=== PATIENT | male | born 1975 | race Caucasian/White ===

== ENCOUNTER 2025-06-07 12:44 | Emergency (ER) | payer OTHER, SELFPAY ==
[2025-06-07 12:46] VITALS: BP 122/86
[2025-06-07] MEDS: VIBRAMYCIN 100 MG PO (14:16)
--- NOTE | 2025-06-07 15:01 | ED.GENMED ---
History of Present Illness
General
Chief Complaint: Skin Surface Trauma
Time Seen by Provider: 06/07/25 13:00
History of Present Illness
History of Present Illness:
see MDM
Phy Exam
Physical Exam
Physical Exam:
see MDM
Course
Orders/Labs/Results
Orders:
Orders
06/07/25 13:31
CR Knee - Left 4 Or More View* Urgent
Comment:
Reason For Exam: left posterior knee laceration
06/07/25 13:49
Doxycycline [Vibramycin] 100 mg PO NOW STA
Vital Signs
Initial and Last Documented VS:
Initial Vital Signs
Temp Pulse Resp BP Pulse Ox
36.8 C 96 18 122/86 96
06/07/25 12:46 06/07/25 12:46 06/07/25 12:46 06/07/25 12:46 06/07/25 12:46
Last Documented Vital Signs
Temp Pulse Resp BP Pulse Ox
36.8 C 96 18 122/86 96
06/07/25 12:46 06/07/25 12:46 06/07/25 12:46 06/07/25 12:46 06/07/25 12:46
Procedures
Laceration Closure
Left Posterior Knee:
Status of Wound: clean
Description of Wound Edges: surrounded by abrasion and macerated
Preparation: cleaned with saline
Anesthesia: 1% Lidocaine
Revision/Debridement: minor revision and irrigate-direct pressure
Wound exploration: explored to base- no FB and no tendon involvement
Type of Closure: single layer closure
Skin Closure Material: 5-0 nylon
Number of sutures: 3
Additional information:
loosely approximated
MDM/Problems Addressed
Differential Diagnosis Includes:
see MDM
MDM/Problems Addressed:
Note:
CHIEF COMPLAINT(S)
Laceration to the back of the knee after surfing incident.
HISTORY OF PRESENT ILLNESS
The patient is a 50-year-old male who presents with a laceration to the back of his left knee sustained while surfing earlier this morning in [place]. The incident occurred around 10:30 AM. The patient says he was trying to get up onto the
surfboard and slipped causing him to cut his leg on the sharp small fin on the board.
The patient reports stiffness and discomfort in the area, adding, 'Its not a sharp pain, more like a throbbing.' He can bend the knee if needed, although it remains generally stiff. The patient also mentioned that the last tetanus shot was likely
received within the last couple of years, possibly after a prior finger injury.
he has some soreness to his hamstring and his upper calf muscle
no signfiicatn bleeding, no arterial pulsations, no leakage of fluid
no numbness/tingling/weakness or foot drop
no cold foot or color change
PHYSICAL EXAM
GENERAL: Alert , in no apparent distress, comfortable at rest
HEAD: NCAT
CV: 2+ DP PULSES B/L
NEUROLOGICAL: Alert and oriented, no focal neuro deficits, , 5/5 strength, sensation intact, ambulation slight limp right leg
SKIN: Warm and dry, 2-1/2 cm laceration to the posterior knee in the middle with some surrounding soft tissue swelling, looks like it went through the subcutaneous fat but I do not appreciate any muscle or tendon visualization, he is able to flex
the knee, straight leg raise, and tighten his hamstring, he has some pain but there is no weakness, distally neurovascularly intact, normal sensation and strength and normal pulse in the foot, foot is perfused
MUSCULOSKELETAL: Anterior left knee normal inspection, no effusion, full range of motion, no tenderness, flexion intact, no translocation with anterior posterior drawer
PSYCH: Normal and appropriate interaction.
- Nursing notes reviewed and vital signs reviewed.
PLAN
- Obtain an x-ray of the leg to rule out the presence of air in the joint and to check for any possible bone injury.
- Repair the laceration with sutures after numbing and cleaning the wound.
- Consider placing the leg in a brace or using lawson wraps to maintain knee stability and support. Offer the patient crutches if preferred.
- Discuss the necessity of confirming patients last tetanus shot date, advising follow-up or contacting previous medical providers if uncertain.
DIFFERENTIAL DIAGNOSIS
The Differential Diagnosis includes, in no particular order and is not limited to:
1. Soft tissue injury
2. Contusion
3. Hamstring strain
4. Muscle hematoma
5. Knee ligament injury
6. Laceration with potential infection
7. Joint effusion
8. Tendonitis
9. Bursitis
10. Meniscal tear
50-year-old male healthy presents for laceration posterior left knee [place]. There is a deep wound approximately 2-1/2 cm posteriorly in that knee area with soft tissue swelling, no obvious tendon injury or muscle injury,
he has no vascular injury suspected, anteriorly the knee is normal, he has some minimal pain with ambulation, feels some soreness in his hamstring and gastroc region x-ray did not show any obvious air in the joint space and I did talk to orthopedics
Dr. Lucio who recommended irrigating the wound well and loosely approximating with sutures as well as covering with antibiotics for
marine bacteria. Doxycycline was the preference on up-to-date.
Crutches given to help with assistance for partial weightbearing as tolerated, Lawson wrap applied after sutures were placed. Instructions given to return
*Pulse Oximetry
SaO2: 96
Oxygen Mode of Delivery: Room air
Patient hypoxic: no (96)
*Critical Care Note
Total Time (30-74mins, 75-104mins- exclusive of procedures): Not Applicable
ED Attending Note
-
Portions of this chart may have been created with voice recognition software.� Occasional wrong word or��sound alike� substitutions may have occurred due to the inherent limitations of voice recognition software.
Discharge Plan
Departure
Patient Disposition: Home (Routine Discharge)
Date of Disposition: 06/07/25
Time of Disposition: 14:43
Patient with high blood pressure during this ER visit?: No
Condition: Fair
Covid-19: Not Applicable
Discharge Problem:
Laceration of knee
Instructions: Laceration Repair With Stitches (DC)
Prescriptions:
New
doxycycline hyclate 100 mg tablet
100 mg PO BID Qty: 14 0RF
Referrals:
Christopher Lucio MD [Active, Orthopedics] - Follow up in 5-7 days
Patrick Willoughby MD [Family Provider, Family Practice]
Stand Alone Forms: Return to Work
Activity Restrictions/Additional Instructions:
Your wound was irrigated and repaired with stitches. Keep it clean and dry for 24 hours. After that you can get it wet in the shower. You should make sure that there is no dried blood on top of your sutures and then apply Neosporin and a nonstick
dressing and then the Lawson wrap. You should use the crutches to avoid bending and some partial weightbearing of the knee for a few days to let the sutures heal the skin. Take doxycycline twice a day for 7 days. This can cause some sun sensitivity
so just be aware of that. Take ibuprofen every 8 hours with food for pain. You should follow-up with orthopedics this week, you can call and tell them you were seen in the emergency department. Certainly if you improved a lot and did not have any
issues you would not need to follow-up with them. You can ice off-and-on for the swelling. Return for redness, drainage, significant swelling, numbness tingling or weakness of the foot, inability to walk or any concerns
Interventions
Interventions:
*Risk Screen - Suicide Last Done: 06/07/25 12:46
*General Assessment Last Done: 06/07/25 12:46
*Neglect/Abuse Screening Last Done: 06/07/25 12:46
*ED- Fall Risk Assessment Last Done: 06/07/25 13:29
*Nursing Disposition Last Done: 06/07/25 14:59
ED-Skin Assessment Last Done: 06/07/25 13:29
Discharge Date and Time
Discharge Date/Time: 06/07/25 14:59
Print Language: [id number]
== END 2025-06-07 14:59 | disposition home or self-care (01) ==
LOC: EMR 12:44
PROVIDERS: EMERGENCY PHYSICIAN Emergency Medicine; FAMILY PHYSICIAN Family Medicine
DX: S81.012A Laceration without foreign body, left knee, initial encounter (principal); W22.8XXA Striking against or struck by other objects, initial encounter; Y93.18 Activity, surfing, windsurfing and boogie boarding
CPT/HCPCS: 12001; 99283; 73564